=== PATIENT | female | born 1955 | race African-American/Black ===

== ENCOUNTER 2017-04-12 15:26 | Emergency (ER) | payer MEDICAID ==
[~2017-04-12] VITALS: Ht 162.6 cm; Wt 75.0 kg
[2017-04-12] MEDS: IBUPROFEN 600MG TABLET PO ONE (19:14)
[2017-04-12 20:33] LABS: BASOPHILS % 0.9 % (0.0-2.0); EOSINOPHILS % 3.5 % (0.0-5.0); HEMATOCRIT. 39.7 % (36.0-48.0); HEMOGLOBIN. 12.8 g/dL (12.0-16.0); LYMPHOCYTES % 44.5 % (20.0-50.0); MEAN CORPUSCULAR HEMOGLOBIN 27.6 pg (28.0-32.0); MEAN CORPUSCULAR VOLUME 85.3 fL (81.0-99.0); MEAN PLATELET VOLUME 7.8 fl (7.4-10.4); MONOCYTES % 6.5 % (2.0-8.0); NEUTROPHILS % 44.6 % (40.0-76.0); PLATELET 299 x1000/uL (130-400); RED BLOOD CELL COUNT 4.65 mill/uL (4.2-5.4); RED CELL DISTRIBUTION WIDTH 15.2 % (11.6-14.6)
[2017-04-12 20:38] LABS: CHLORIDE 106 mEq/L (98-107)
[2017-04-12 20:45] LABS: CARBON DIOXIDE 27 mEq/L (21-32)
[2017-04-12 20:48] LABS: CLARITY URINE CLOUDY (CLEAR); COLOR URINE YELLOW (YELLOW); KETONES URINE NEGATIVE (NEGATIVE); LEUKOCYTE ESTERASE URINE 1+ (NEGATIVE); NITRITE URINE NEGATIVE (NEGATIVE); OCCULT BLOOD URINE TRACE (NEGATIVE); PROTEIN URINE NEGATIVE (NEGATIVE); SPECIFIC GRAVITY URINE 1.016 (1.005-1.030); UROBILINOGEN URINE 0.2 E.U./dL (0.2-1.0)
[2017-04-12] MEDS: SODIUM CHLORIDE 0.9% 1,000 ML IV ONE (21:18)
[2017-04-12] MEDS: CYCLOBENZAPRINE 10MG TABLET PO ONE (21:18)
[2017-04-12] MEDS ORDERED: IOHEXOL-300 100 ML BOTTLE ONE (22:32)
[2017-04-13] VITALS: BP 148/72
== END 2017-04-13 00:32 | disposition home or self-care (01) ==
LOC: ER 16:18
DX: R10.31 Right lower quadrant pain (principal); M60.9 Myositis, unspecified; M79.1 Myalgia; Z88.5 Allergy status to narcotic agent
CPT/HCPCS: 36415; 73700; 80053; 81001; 85025; 93971; 96360; 99285; Q9967; Z7610